=== PATIENT | female | born 1970 | race Caucasian/White ===

== ENCOUNTER → 2020-09-17 12:49 | Outpatient (REF) | payer MEDICAID, SELFPAY ==
--- NOTE | 2020-09-17 13:01 | ECG_ITS ---
Hook-up date: 2020-09-17 13:00:00 Duration: 17:42:00 Test Indications: DIZZINESS Medications: 29053 QRS complexes 96387 Ventricular ectopics which represent 17 % of total QRS comp. 21 Supraventricular ectopics which represent <1 % of total QRS comp. * Paced QRS complexs which represent % of total QRS comp. VENTRICULAR ECTOPY 00778 Isolated 2056 Bigeminal Cycles 366 Couplets 0 Runs 0 Beats in Runs * Beats LONGEST at * BPM at :: -- * Beats FASTEST at * BPM at :: -- SUPRAVENTRICULAR ECTOPY 21 Isolated 0 Couplets 0 Runs 0 Beats in Runs * Beats LONGEST at * BPM at :: -- * Beats FASTEST at * BPM at :: -- HEART RATES 50 MIN at 01:48:41 2020-09-18 70 AVG 127 MAX at 14:45:42 2020-09-17 LONGEST RR 1.2480 secs at 04:27:18 2020-09-18 S-T LEVELS Channel 1 - 128 mm at 13:00:00 2020-09-17 - 128 mm at 13:00:00 2020-09-17 Channel 2 - 128 mm at 13:00:00 2020-09-17 - 128 mm at 13:00:00 2020-09-17 Channel 3 - 128 mm at 03:21:91 -- - 128 mm at 03:21:91 Basic rhythm Normal sinus rhythm No long pause or profound bradycardia Frequent Premature ventricular complexes , 18% of total beats. Patient did not report any symptoms in the diary Referred By: Khoa Almazan Overread By: REX HANNON MD
== END ==
LOC: HO.CARD 12:49
PROVIDERS: PCP Internal Medicine; Visit Provider Internal Medicine
DX: R42 Dizziness and giddiness (principal)
CPT/HCPCS: 93226

== ENCOUNTER → 2020-10-03 14:11 | Outpatient (BNVA) | payer MEDICAID, SELFPAY | PROVIDERS: PCP Internal Medicine; Referring Provider Internal Medicine; Visit Provider Orthopaedic Surgery | DX: Z98.890 Other specified postprocedural states (principal) | CPT/HCPCS: 99212 ==

== ENCOUNTER 2020-10-22 18:30 | Outpatient (REF) | payer MEDICAID, SELFPAY ==
--- NOTE | 2020-10-22 18:33 | MR_ITS ---
EXAMINATION: MR SHOULDER WITHOUT CONTRAST, RIGHT CLINICAL INFORMATION: Right shoulder pain, weakness, numbness. History of rotator cuff surgery fall 2017. COMPARISON: MRI dated 05/20/2017 TECHNIQUE: MRI of the shoulder without contrast was performed on a high-field scanner. FINDINGS: ROTATOR CUFF: Postsurgical changes of a rotator cuff repair are evident at the greater and lesser tuberosities with micrometallic susceptibility artifact, as well as a soft tissue anchor at the superior margin of the bicipital groove, most consistent with a rotator cuff repair and biceps tenodesis. The attenuated appearance of the supraspinatus and subscapularis tendons likely corresponds to the expected postoperative appearance. No discrete recurrent tears are identified in these regions. No appreciable recurrent tendinosis. No muscle atrophy or fatty infiltration. BICEPS: Absence at its intra-articular extent, most consistent with tenodesis. CORACOACROMIAL ARCH: The undersurface of the acromion is blunted and remodeled, consistent with a subacromial decompression. No subacromial spur. Mild to moderate acromioclavicular osteoarthritis appears unchanged. No subacromial subdeltoid bursitis. LABRUM/CAPSULE: Glenoid labrum is blunted superiorly, consistent with prior tenodesis. No labral tears. GLENOHUMERAL JOINT/MARROW: A marginal osteophyte is noted at the glenoid posteroinferiorly. Mild nonuniform chondral thinning at the glenoid articular surface is more notable superiorly. No fracture or malalignment. No joint effusion. MR/MR shoulder RT wo con IMPRESSION: Status post rotator cuff repair at the supraspinatus and infraspinatus tendons without evidence of a recurrent tear. Status post biceps tenodesis. Minimal glenohumeral osteoarthritis. Mild to moderate acromioclavicular osteoarthritis, unchanged.
== END 2020-10-22 18:31 | disposition home or self-care (01) ==
LOC: HO.MRI 18:30
PROVIDERS: Visit Provider Orthopaedic Surgery
DX: Z98.890 Other specified postprocedural states (principal)
CPT/HCPCS: 73221

== ENCOUNTER 2020-10-30 09:53 | Outpatient (REF) | payer MEDICAID, SELFPAY ==
--- NOTE | 2020-10-30 09:56 | MM_ITS ---
EXAMINATION: MM SCREENING DIGITAL BREAST TOMOSYNTHESIS, BILATERAL CLINICAL INFORMATION: Screening. Asymptomatic. The lifetime risk of breast cancer based on the Tyrer-Cuzick Model is 12.2%. COMPARISON: Mammography: July 02, 2018 and studies dating back to January 27, 2013 TECHNIQUE: Digital breast tomosynthesis is performed in both the craniocaudal and mediolateral oblique views along with computer-aided detection (CAD). Synthesized 2D images are generated from the tomosynthesis. FINDINGS: There are scattered areas of fibroglandular density (ACR BI-RADS breast composition Category b). There are no significant masses, abnormal calcifications, or other abnormalities. MM/MM tomosynthesis screening BI IMPRESSION: There are no significant changes from prior study. ASSESSMENT: BI-RADS 1: Negative RECOMMENDATION: Routine annual mammography screening. This patient's information was entered into a reminder system with a target due date for their next mammogram.
== END 2020-10-30 09:54 | disposition home or self-care (01) ==
LOC: HO.MAMMO 09:53
PROVIDERS: Visit Provider Internal Medicine
DX: Z12.31 Encounter for screening mammogram for malignant neoplasm of breast (principal)
CPT/HCPCS: 77063; 77067

== ENCOUNTER → 2020-11-07 09:46 | Outpatient (BNVA) | payer MEDICAID, SELFPAY | PROVIDERS: PCP Pediatrics; Visit Provider Orthopaedic Surgery | DX: Z98.890 Other specified postprocedural states (principal) | CPT/HCPCS: 99212 ==

== ENCOUNTER 2020-11-13 12:55 | Outpatient (RCR) | payer MEDICAID, SELFPAY ==
[2020-11-13 13:08] VITALS: BP 126/60; PULSE 68; RESP 15; O2SAT 99
== END 2021-07-01 13:14 | disposition home or self-care (01) ==
LOC: HO.PT 12:55
PROVIDERS: PCP Internal Medicine; Visit Provider Internal Medicine
DX: H81.10 Benign paroxysmal vertigo, unspecified ear (principal)
CPT/HCPCS: 97112; 97162

== ENCOUNTER 2023-01-28 12:05 | Outpatient (REF) | payer MEDICAID, SELFPAY ==
--- NOTE | ~2023-01-28 | XR_ITS ---
EXAMINATION: XR KNEE, RIGHT CLINICAL INFORMATION: Anterior right knee pain COMPARISON: Radiographs right knee 01/03/2019. TECHNIQUE: Three views of the right knee. FINDINGS: There is spurring at the quadriceps insertion patella and origin patellar tendon and mild spurring at insertion patella tendon. There is no suprapatellar effusion. Hoffa's fat pad appears normal. The deep infrapatellar recess is preserved. Axial view patella shows no lateralization or tilting. No patellofemoral joint narrowing or erosive change. There is mild narrowing medial knee joint compartment. XR/XR knee RT 3V IMPRESSION: -Spurring extensor mechanism enthesis quadriceps and patellar tendons. -No lateralization or tilting patella. -Mild narrowing medial knee joint compartment. No erosive change.
== END 2023-01-28 12:06 | disposition home or self-care (01) ==
LOC: HO.XRAY 12:05
PROVIDERS: Visit Provider Pediatrics
DX: M25.561 Pain in right knee (principal)
CPT/HCPCS: 73562

== ENCOUNTER 2024-07-20 08:36 | Outpatient (REF) | payer OTHER, SELFPAY ==
[2024-07-20 14:22] LABS: MANUAL DIFF FLAG NO
[2024-07-20 14:25] LABS: Basophils Percent Auto 0.3 % (0-2); Eosinophils Absolute Auto 0.1 X10*3/uL (0.0-0.4); Eosinophils Percent Auto 1.4 % (0-4); Hematocrit 36.2 % (37.0-47.0); Hemoglobin 11.3 g/dl (12.0-16.0); Imm Gran Abs Auto 0.02 X10*3/uL (0.00-0.03); Imm Gran Pct Auto 0.3 % (0.0-0.4); Lymphocytes Absolute Auto 1.5 X10*3/uL (1.2-4.9); Mean Corpuscular HGB Conc 31.2 g/dl (31.0-35.0); Mean Corpuscular Hemoglobin 25.1 pg (27.0-33.0); Mean Corpuscular Volume 80.3 fL (80.0-98.0); Mean Platelet Volume 12.2 fL (9.4-12.3); Monocytes Absolute Auto 0.5 X10*3/uL (0.1-1.2); Monocytes Percent Auto 8.9 % (2-11); Neutrophils Absolute Auto 3.7 x10*3/uL (2.0-8.3); Neutrophils Percent Auto 64.1 % (45-73); Platelet Count 259 X10*3/uL (160-400); Red Blood Count 4.51 X10*6/uL (4.20-5.50); Red Cell Distribution Width 16.3 % (11.0-16.0); White Blood Count 5.8 X10*3/uL (4.8-10.8)
[2024-07-20 14:41] LABS: Alanine Aminotransferase 15 U/L (0-31); Alkaline Phosphatase 80 U/L (39-117); Anion Gap 11 (12-20); Aspartate Amino Transferase 17 U/L (5-31); Bilirubin Total 0.4 mg/dL (0.0-1.0); Blood Urea Nitrogen 7 mg/dL (9-16); Calcium 9.1 mg/dL (8.4-10.2); Carbon Dioxide 24 mmol/L (22-29); Chloride 108 mmol/L (96-108); Cholesterol 177 mg/dL (<200); Estimated Glomerular Filt Rate > 60; Glucose Random 72 mg/dL (60-115); HDL Cholesterol 61 mg/dL (>40); LDL Cholesterol Calculated 96 mg/dL (<100); Potassium 3.8 mmol/L (3.3-5.1); Sodium 139 mmol/L (135-145); Total Protein 7.8 g/dL (6.5-8.0); Triglycerides 101 mg/dL (<150)
== END 2024-07-20 08:37 | disposition home or self-care (01) ==
LOC: HO.CHCLDS 08:36
PROVIDERS: Visit Provider Internal Medicine
DX: Z00.00 Encounter for general adult medical examination without abnormal findings (principal); I10 Essential (primary) hypertension; F51.01 Primary insomnia
CPT/HCPCS: 36415; 80053; 80061; 84443; 85025

== ENCOUNTER 2024-07-24 15:49 | Outpatient (REF) | payer OTHER, SELFPAY ==
[2024-07-24 16:50] LABS: Retic HGB Equivalent 28.5 pg (30.0-35.0); Reticulocyte Percent 1.5 % (0.5-1.8); Reticulocytes Absolute 0.065 X10*6/uL (0.026-0.095)
[2024-07-24 17:17] LABS: Iron 28 mcg/dL (30-160); Percent Iron Saturation 7 % (15-50); Total Iron Binding Capacity 391 mcg/dL (228-428); Unsaturated Iron Binding 363 ug/dL
[2024-07-24 17:36] LABS: Ferritin 7 ng/mL (10-250)
== END 2024-07-24 15:50 | disposition home or self-care (01) ==
LOC: HO.LAB 15:49
PROVIDERS: PCP Internal Medicine; Visit Provider Internal Medicine
DX: D50.9 Iron deficiency anemia, unspecified (principal)
CPT/HCPCS: 36415; 82728; 83540; 85045

== ENCOUNTER 2024-12-15 14:41 | Outpatient (REF) | payer OTHER, SELFPAY ==
--- OUTSIDE RECORDS SUMMARY | 2024-12-15 14:59 | XMS_ITS | Encounter Summary ---
Author Organization [employer] Address [address] [facility] [address] [place] [address] Care Team Providers Care Cotton Header Name Role Phone Khoa Almazan MD Primary Care Provider [phone]- [phone] Reason for Visit * Reason Comments Pre-visit Planning Pre visit planning L VM Encounter Details Date Type Department Care Team (Late st Contact Info) Description 12/01/[address] [facility] [address] [place] [address] Khoa Almazan MD [address] [place] [address] Pre-visit Planning (Pre visit planning LVM ) Social History Tobacco Use Types Packs/Day Years Used Date Smoking Tobacco: Never Smokeless Tobacco: Never Depression Answer Date Recorded Patient Health Questionnaire-9 Score 2 11/25/2023 Patient Health Questionnaire-9 Score 2 11/25/2023 Last PHQ-9: Questionnaire Data Not on file 0 11/25/2023 Housing Stability Answer Date Recorded What is your housing situation today? I have tashia shanks 11/17/[address] you li ve. Do you have problems with any of the following? None of the above 11/17/2023 Food Insecurity Answer Date Recorded Within the past 12 months, y ou worried that your food would run out before you got money to buy more: Never True 11/17/2023 Within the past 12 months,th e food you bought just didn't last and you didn't have enough money to get more: Never True Transportation Answer Date Recorded In the past 12 months, has l ack of transportation kept you from medical appts, meetings, work or from getting things needed for daily living? No 11/17/2023 Utilities Answer Date Recorded In the past 12 months, has t he electric, gas, oil or water company threatened to shut off services in your home? No 11/17/2023 Depression Answer Date Recorded Patient Health Questionnaire-2 Score 0 11/25/2023 Comments Unknown Sex and Gender Information Value Date Recorded Sex Assigned at Female 08/24/2022 10:22 AM EDT Legal Sex Female 10:22 AM EDT Gender Identity Female 08/24/2022 10:22 AM EDT Sexual Orientation Straight 08/24/2022 10 :22 AM EDT documented as of this encounter Progress Notes * Winston Mireles - 12/01/2024 1:44 PM EST CC Winston Boswell placed outbound call to patient to complete pre-visit planning. No answer at this time.Patient name and were not confirmed. CC left voicemail requesting return call. Direct contact information provided. documented in this encounter Plan of Treatment Upcoming Encounters Date Type Department Care Team (Late st Contact Info) Description 01/30/2025 2:00 PM EDT Office Visit [facility] [address] [place] [address] Khoa Almazan MD [address] [place] [address] documented as of this encounter Visit Diagnoses Not on filedocumented in this encounter Additional Health Concerns Assessment Noted Time PHQ-9 Depression Total Score: 2 11/25/19 24 1:59 PM EST documented as of this encounter Care Teams Cotton Header Relationship Specialty Start Date End Date Khoa Almazan MD [address] [place] [address] PCP - General Internal Medicine 11/20/11 documented as of this encounter
--- OUTSIDE RECORDS SUMMARY | 2024-12-15 14:59 | XMS_ITS | Encounter Summary ---
Author Organization [employer] Address [address] [facility] [address] [place] [address] Care Team Providers Care Motors Assembler Name Role Phone Khoa Almazan MD Primary Care Provider [phone]- [phone] Reason for Visit * Reason Onset Date Comments Medication Question 10/28/2022 Encounter Details Date Type Department Care Team (Late st Contact Info) Description 10/28/2022 Telephone [facility] [address] [place] [address] Khoa Almazan MD [address] [place] [address] Medication Question Social History Tobacco Use Types Packs/Day Years [...] Orientation Straight 08/24/2022 10 :22 AM EDT COVID-19 Exposure Response Date Recorded In the last 10 days, have yo u been in contact with someone who was confirmed or suspected to have Coronavirus/COVID-19? No / Unsure 01/28/2023 10:41 AM EDT documented as of this encounter Miscellaneous Notes * Telephone Encounter - Josef Wen RN - 10/28/2022 8:58 AM EST Please review message below and advise. Rx prescribed not yet sent to pharmacy. * Telephone Encounter - Winston Mireles - 10/28/2022 8:35 AM EST Tc from pt requesting status update on medications PCP would send, States was seen yesterday at [facility]. Cosmetologist added preferred pharmacy on file. Please contact at [phone] documented in this encounter Plan of Treatment Upcoming Encounters Date Type Department Care Team (Late st Contact Info) Description 01/30/2025 2:00 PM EDT Office Visit [facility] [address] [place], [place] [phone] Khoa Almazan MD [address] [place] [address] documented as of this encounter Visit Diagnoses Diagnosis Acute recurrent frontal sinusitis documented in this encounter Additional Health Concerns Assessment Noted Time PHQ-9 Depression Total Score: 2 10/27/19 23 1:47 PM EST documented as of this encounter Care Teams Motors Assembler Relationship Specialty Start Date End Date Khoa Almazan MD [address] [place] [id number] PCP - General Internal Medicine 11/20/11 documented as of this encounter
--- OUTSIDE RECORDS SUMMARY | 2024-12-15 14:59 | XMS_ITS | Encounter Summary ---
Author Organization [employer] Address [address] [facility] [address] [place] [address] Care Team Providers Care Stitch Separator Name Role Phone Khoa Almazan MD Primary Care Provider [phone] Encounter Details Date Type Department Care Team (Latest Contact Info) Description 12/15/2024 Travel Social History Tobacco Use Types Packs/Day Years Used Date Smoking Tobacco: Never Smokeless Tobacco: Never Alcohol Answer Date Recorded Q1: How often do you have a drink containing alc ohol? 2 12/15/2024 Q2: How many drinks containi ng alcohol do you have on a typical day when you are drinking? 0 12/15/2024 Q3: How often do you have six or more drinks on one occasion? 2 12/15/2024 Depression Answer Date Recorded Patient Health Questionnaire-9 Score 0 12/15/2024 Patient Health Questionnaire-9 Score 0 12/15/2024 Last PHQ-9: Questionnaire Data Not on file 0 12/15/2024 Housing Stability Answer Date Recorded What is [...] Date Recorded Patient Health Questionnaire-2 Score 0 12/15/2024 Comments Unknown Sex and Gender Information Value Date Recorded Sex Assigned at Female 08/24/2022 10:22 AM EDT Legal Sex Female 10:22 AM EDT Gender Identity Female 08/24/2022 10:22 AM EDT Sexual Orientation Straight 08/24/2022 10 :22 AM EDT documented as of this encounter Plan of Treatment Upcoming Encounters Date Type Department Care Team ([facility] st Contact Info) Description 01/30/2025 2:00 PM EDT Office Visit [facility] [address] [place] [address] Khoa Almazan MD [address] [place] [address] documented as of this encounter Visit Diagnoses Not on filedocumented in this encounter Additional Health Concerns Assessment Noted Time PHQ-9 Depression Total Score: 0 12/15/19 25 2:46 PM EST documented as of this encounter Care Teams Stitch Separator Relationship Specialty Start Date End Date Khoa Almazan MD [address] [place] [address] PCP - General Internal Medicine 11/20/11 documented as of this encounter
--- OUTSIDE RECORDS SUMMARY | 2024-12-15 14:59 | XMS_ITS | Clinical Summary ---
Author Organization [employer] Address [address] [facility] [address] [place] [address] Care Team Providers Care Distillery Supervisor Name Role Phone Khoa Almazan MD Primary Care Provider [phone] Allergies Active Allergy Reactions Criticality Noted Date Comments Venlafaxine 07/19/2012 Other reaction(s): facial swelling jaw shivering Medications * This document contains information received from the source organization and may not represent a complete record from that organization. cholecalciferol (Vitamin D-3) 25 MCG (1000 UT) tablet take 1 tablet p.o. once/day 9 Active docusate sodium (Colace) 100 MG capsule Take 1 capsule by mouth at bed time. As needed 2 Active montelukast (Singulair) 10 MG tablet Take 1 tablet by mouth. Every day 9 Active Blood Pressure kit Use daily Active pseudoephedrine (Sudafed) 60 MG tabletIndications :Acute recurrent frontal sinusitis Take 0.5 tablets (30 mg) by mouth every 6 (six) hours if needed for congestion for up to 10 days. 30 tablet 3 Active albuterol 108 (90 Base) MCG/ACT inhalerIndication s:Shortness of breath Inhale 2 puffs every 6 (six) hours if needed for wheezing. 18 g 2 3 Active lidocaine-priloca ine (Emla) 2.5-2.5 % cream Apply bid to affected area prn pain 30 g 3 3 Active Multiple Vitamin (Multivitamin) tablet TAKE 1 TABLET BY MOUTH DAILY 30 tablet 3 3 Active ferrous sulfate 325 (65 Fe) MG tabletIndications :Microcytic anemia Take 1 tablet (325 mg) by mouth with breakfast. Every day 30 tablet 2 4 Active mirtazapine (Remeron) 7.5 MG tabletIndications :Primary insomnia TAKE 1 TABLET(7.5 MG) BY MOUTH AT BEDTIME 30 tablet 4 Active hydroCHLOROthiazi de 12.5 MG tabletIndications :Primary hypertension Take 1 tablet (12.5 mg) by mouth Once per day. 30 tablet 11 5 12/15/19 26 Active Active Problems Problem Noted Date Diagnosed Date Vitamin D deficiency 03/24/2022 COVID-19 03/16/2022 Hypertensive disorder 08/12/2020 Primary insomnia 03/23/2018 Carpal tunnel syndrome 07/13/2014 Encounters Date Type Department Care Team Description 12/15/2024 2:00 PM EST Office Visit [facility] [address] [place] [address] Khoa Almazan MD Microcytic anemia (Primary Dx); Primary hypertension; Annual physical exam 12/15/2024 Travel 12/01/2024 Patient Outreach [facility] [address] [place], [place] [phone] Khoa Almazan MD Pre-visit Planning (Pre visit planning LVM ) 11/03/2024 Telephone [facility] [address] [place] [address] Khoa Almazan MD recall appt from Last 3 Months Immunizations Name Administration Dates Next Due Hep B, adult 09/01/2012,08/03/2012 Influenza injectable quadriv alent IIV4 with preservative 08/26/2018,08/24/2017,08/27/2015 Influenza injectable quadriv alent preservative free 08/15/2021,08/13/2020 Influenza, IIV3, injectable 10/01/2014 Influenza, Split (incl. zelda fied surface antigen) 08/08/2013 Pfizer Covid-19 Vaccine 12+ 12/23/2020, 1 Tdap 06/02/2019 Zoster, Recombinant 08/22/2020,10/27/2019 Family History Medical History Relation Name Comments Alcohol abuse Father Uterine cancer Maternal Grandmother Diabetes Mother Hypertension Mother No Known Problems Paternal Grandfather Relation Name Status Comments Father Maternal Grandmother Mother Paternal Grandfather Social History Tobacco Use Types Packs/Day Years Used Date Smoking Tobacco: Never Smokeless Tobacco: Never Tobacco Cessation:Counseling Given: No Alcohol Answer Date Recorded Q1: How often [...] Orientation Straight 08/24/2022 10 :22 AM EDT Last Filed Vital Signs Vital Sign Reading Time Taken Comments Blood Pressure 160/90 12/15/2024 2:05 PM EST Pulse 70 12/15/2024 2:05 PM EST Temperature 36.8 ??C (98.3 ??F) 12/15/2024 2:05 PM ES T Respiratory Rate 20 12/15/2024 2:05 PM EST Oxygen Saturation 99% 12/15/2024 2:05 PM EST Inhaled Oxygen Concentration - - Weight 73.5 kg (162 lb) 12/15/2024 2:05 PM EST Height 156 cm (5' 1.42 ) 12/15/2024 2:05 PM EST Body Mass Index 30.2 12/15/2024 2:05 PM EST Plan of Treatment Upcoming Encounters Date Type Department Care Team ([facility] st Contact Info) Description 01/30/2025 2:00 PM EDT Office Visit [facility] [address] [place] [address] Khoa Almazan MD [address] [place], [place] [phone] Health Maintenance Due Date Last Done Comments CT Colonography 1968 FIT DNA/Cologuard 1968 FIT 1968 FOBT 1968 HIV Screening 1968 Sigmoidoscopy 1968 Hepatitis C Screening 1986 Pap Smear 1989 Cervical Cancer Screening 1998 HPV/Cotest 1998 Hepatitis B Vaccines (3 of 3 - 19+ 3-dose series) 02/01/2013 09/01/2012, 08/03/2012 Pneumococcal Vaccine: 50+ Years (2 of 2 - PCV) 2018 10/18/2007 Mammogram 10/30/2022 10/30/2020, 07/04/2018 COVID-19 Vaccine ( season) 2024 07/29/2021, 12/23/2020, 12/02/2020 Influenza Vaccine (#1) 2024 2, 08/15/2021, 08/13/2020, Additional history exists SDOH Screening 11/17/2024 11/17/2023 Depression Screening 11/25/2024 11/25/2023, 11/25/19 Alcohol/Substance Use Screening 12/15/2025 12/15/2024 Tobacco Screening 12/15/2025 12/15/2024 DTaP/Tdap/Td Vaccines (2 - Td or Tdap) 06/02/2029 06/02/2019 Colonoscopy 07/13/2029 07/13/2019 Colorectal Cancer Screening 07/13/2029 Lipid Panel 07/20/2029 07/20/2024, 08/12/2022 RSV Patients and Patients Aged 60 years or older (1 - 1-dose 75+ series) 2043 Zoster Vaccines Completed 08/22/2020, 10/27/2019 HIB Vaccines Aged Out No longer eligi ble based on patient's age to complete this topic HPV Vaccines Aged Out No longer eligi ble based on patient's age to complete this topic Hepatitis A Vaccines Aged Out No long er eligible based on patient's age to complete this topic IPV Vaccines Aged Out No longer eligi ble based on patient's age to complete this topic Meningococcal Vaccine Aged Out No natividad maria dolores eligible based on patient's age to complete this topic RSV under 20 months Aged Out No longe r eligible based on patient's age to complete this topic Rotavirus Vaccines Aged Out No longer eligible based on patient's age to complete this topic Procedures Procedure Name Priority Date/Time Associated Diagnosis Comments LIPID PANEL, STANDARD Routine 07/20/2024 8:41 AM EDT Annual physical exam Primary hypertension Primary insomnia MAMMOGRAM GENERIC Routine 10/30/2020 9:5 6 AM EST HM COLONOSCOPY Routine 07/13/2019 from Last 3 Months or Most Recently Relevant to Health Maintenance Results * Lipid Panel, Standard (07/20/2024 8:41 AM EDT) Triglycerides 101 <150 mg/dL [facility] Comment:Desirable Triglyceri de: less than 150 mg/dLBorderline High Triglyceride 150-199 mg/dLHigh Triglyceride: 200-499 mg/dLVery High Triglyceride: greater than or equal to 5OO mg/dL Cholesterol 177 <200 mg/dL [facility] Comment:Desirable Cholestero l: less than 200 mg/dLBorderline High Cholesterol: 200-239 mg/dLHigh Cholesterol: greater than 239 mg/dL LDL Cholesterol Calculated 96 <100 mg/dL [facility] Comment:Desirable LDL: less than 100 mg/dLNear Optimal/Above Optimal LDL: 110- 129 mg/dLBorderline High LDL: 130-159 mg/dLHigh LDL: 160-189 mg/dLVery High LDL: greater than or equal to 190 mg/dL HDL Cholesterol 61 >40 mg/dL [facility] Comment:Desirable HDL: great er than 40 mg/dL Note: This HDL assay may give artificially low results in patients with liver disease. Blood Venous blood specimen / Unknown 07/20/2024 8:41 AM EDT 07/20/2024 2:13 PM EDT Khoa Almazan MD LAB BLOOD ORDERABLES Final Result Performing Organization Address City/State/[facility] Co de Phone Number [facility] [address] [place] [phone] * Mammography Report 1 (10/30/2020 9:56 AM EST) Anatomical Region Laterality Modality Breast Bilateral Mammography 10/30/2020 9:56 AM EST Narrative 10/31/2020 11:21 AM EST Refer to the Notes tab for result details [facility] Procedure: Mammography Report 1 Procedure Note Provider, MD Missy - 01/16/2023 Refer to the Notes tab for result details [facility] Procedure: Mammography Report 1 Khoa Almazan MD IMG BI PROCEDURES Final Res ult * Hm Colonoscopy (07/13/2019) Colonoscopy Normal Normal Narrative Kaye Mckenzie - 07/13/2019 Recommended 10 year follow up Historical Provider HEALTH MAINTENANCE Final Result from Last 3 Months or Most Recently Relevant to Health Maintenance Insurance Care Teams Distillery Supervisor Relationship Specialty Start Date End Date Khoa Almazan MD [address] [place] [id number] PCP - General Internal Medicine 11/20/11
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
--- OUTSIDE RECORDS SUMMARY | 2024-12-15 14:59 | XMS_ITS | Encounter Summary ---
Author Organization [employer] Address [address] [facility] 7[address] [place] [address] Care Team Providers Care Truck Driver Name Role Phone Khoa Almazan MD Primary Care Provider [phone]- [phone] Encounter Details Date Type Department Care Team ([facility] st Contact Info) Description 07/20/2024 Orders Only [facility] CHC MED & PEDS [address] [place], [place] [phone] Khoa Almazan MD [address] [place] [address] Microcytic anemia (Primary Dx) Social History Tobacco Use Types Packs/Day Years [...] Description 01/30/2025 2:00 PM EDT Office Visit [facility] CH[facility] MED & PEDS [address] [place] [address] Khoa Almazan MD [address] [place], [place] [phone] documented as of this encounter Procedures Procedure Name Priority Date/Time Associated Diagnosis Comments IRON AND TOTAL IRON BINDING CAPACITY Routine 07/24/2024 3:57 PM EDT Microcytic anemia RETICULOCYTE COUNT Routine 07/24/2024 3: 57 PM EDT Microcytic anemia FERRITIN Routine 07/24/2024 3:57 PM EDT Microcytic anemia documented in this encounter Results * (ABNORMAL) Reticulocyte Count (07/24/2024 3:57 PM EDT) Reticulocytes Absolute 0.065 0.026 - 0.095 X10*6/uL [facility] Immature Retic Fraction 22.0(H) 3.0 - 15.9 % [facility] Retic HGB Equivalent 28.5(L) 30.0 - 35.0 pg [facility] Reticulocyte Percent 1.5 0.5 - 1.8 % [facility] Blood Venous blood specimen / Unknown 07/24/2024 3:57 PM EDT 07/24/2024 3:57 PM EDT us Khoa Almazan MD LAB BLOOD ORDERABLES Final Result Performing Organization Address [facility] Co de Phone Number [facility] [address] [place] [phone] * (ABNORMAL) Ferritin (07/24/2024 3:57 PM EDT) Ferritin 7(L) 10 - 250 ng/mL [facility] Blood Venous blood specimen / Unknown 07/24/2024 3:57 PM EDT 07/24/2024 3:57 PM EDT us Khoa Almazan MD LAB BLOOD ORDERABLES Final Result Performing Organization Address [facility] Phone Number [facility] [address] [place] [phone] * (ABNORMAL) Iron And Total Iron Binding Capacity (07/24/2024 3:57 PM EDT) Iron 28(L) 30 - 160 mcg/dL [facility] Total Iron Binding Capacity 391 228 - 428 mcg/dL [facility] Percent Iron Saturation 7(L) 15 - 50 % [facility] Unsaturated Iron Binding 363 ug/dL [facility] Blood Venous blood specimen / Unknown 07/24/2024 3:57 PM EDT 07/24/2024 3:57 PM EDT us Khoa Almazan MD LAB BLOOD ORDERABLES Final Result Performing Organization Address [facility] Co de Phone Number [facility] [address] [place] [phone] documented in this encounter Visit Diagnoses Diagnosis Microcytic anemia- Primary Unspecified iron deficiency anemia documented in this encounter Additional Health Concerns Assessment Noted Time PHQ-9 Depression Total Score: 2 11/25/19 24 1:59 PM EST documented as of this encounter Care Teams Truck Driver Relationship Specialty Start Date End Date Khoa Almazan MD [address] [place] [phone] PCP - General Internal Medicine 11/20/11 documented as of this encounter
--- OUTSIDE RECORDS SUMMARY | 2024-12-15 14:59 | XMS_ITS | Encounter Summary ---
Author Organization [employer] Address [address] [facility] 7 [place] [address] Care Team Providers Care Floral Specialist Name Role Phone Khoa Almazan MD Primary Care Provider [phone]- [phone] Reason for Visit * Reason Onset Date Comments Nurse Triage 05/19/2023 Encounter Details Date Type Department Care Team ([facility] st Contact Info) Description 05/19/2023 Telephone [facility] CH[facility] MED & PEDS [address] [place] [address] Khoa Almazan MD [address] [place] [address] Nurse Triage Social History Tobacco Use Types Packs/Day Years Used Date Smoking Tobacco: Never Smokeless Tobacco: Never Depression Answer Date Recorded Patient Health Questionnaire-9 Score 2 10/27/2022 Depression Answer Date Recorded Patient Health Questionnaire-2 Score 0 10/27/2022 Comments Unknown Sex and Gender Information Value Date Recorded Sex Assigned at Female 08/24/2022 10:22 AM EDT Legal Sex Female 10:22 AM EDT Gender Identity Female 08/24/2022 10:22 AM EDT Sexual Orientation Straight 08/24/2022 10 :22 AM EDT documented as of this encounter Miscellaneous Notes * Telephone Encounter - Kenzie Dominguez RN - 05/19/2023 10:56 AM EDT Triage call Pt reports left arm with numbness/tingling from elbow to hand. Pt reports this comes and goes and has been a chronic sensation. Pt is able to use arm/hand without weakness noted. Pt denies neck, back pain. Pt does do some typing but not alot . Apt in [facility] 340pm 05/19/23. Protocol Used: Neurologic Deficit (Adult) Protocol-Based Disposition: See in Office or Video Visit within 3 Days Positive Triage Question: * Numbness or tingling in one or both hands is a chronic symptom (recurrent or ongoing problem lasting > 4 weeks) * All higher-acuity triage questions were negative Care Advice Discussed: * Reassurance and Education - Tingling in Foot * Reassurance and Education - Tingling in Hand * Reasons To Call Back - Symptoms do not go away within 10 to 15 minutes - You become worse * Telephone Encounter - Ester Wen - 05/19/2023 10:34 AM EDT Symptom: Numbness (from elbow to hand) Outcome: Schedule an urgent appointment (within 1 hour) or talk to a nurse or provider soon Reason: Getting worse The caller accepted this outcome Please contact pt at [phone] (Telugu) documented in this encounter Plan of Treatment Upcoming Encounters Date Type Department Care Team (Late st Contact Info) Description 01/30/2025 2:00 PM EDT Office Visit [facility] CH[facility] MED & PEDS [address] [place] [address] Khoa Almazan MD [address] [place] [address] documented as of this encounter Visit Diagnoses Not on filedocumented in this encounter Additional Health Concerns Assessment Noted Time PHQ-9 Depression Total Score: 2 10/27/19 23 1:47 PM EST documented as of this encounter Care Teams Floral Specialist Relationship Specialty Start Date End Date Khoa Almazan MD [address] [place] [address] PCP - General Internal Medicine 11/20/11 documented as of this encounter
--- OUTSIDE RECORDS SUMMARY | 2024-12-15 14:59 | XMS_ITS | Encounter Summary ---
Author Organization [employer] [facility] Address [address] [facility] 7[address] [place] [address] Care Team Providers Care Instrument Fitter Name Role Phone Khoa Almazan MD Primary Care Provider Encounter Details Date Type Department Care Team (Late Contact Info) Description 08/26/2023 Abstract [facility]IC[facility] [address] [place] [address] Khoa Almazan MD [address] [place] [address] Social History Tobacco Use Types Packs/Day Years [...] Description 01/30/2025 2:00 PM EDT Office Visit [facility] MED & PEDS [address] [place] [address] Khoa Almazan MD [address] [place] [address] documented as of this encounter Procedures Procedure Name Priority Date/Time Associated Diagnosis Comments HM COLONOSCOPY Routine 07/13/2019 documented in this encounter Results * Hm Colonoscopy (07/13/2019) Colonoscopy Normal Normal Narrative Kaye Mckenzie - 07/13/2019 Recommended 10 year follow up us Historical Provider MD HEALTH MAINTENANCE Final Result documented in this encounter Visit Diagnoses Not on filedocumented in this encounter Additional Health Concerns Assessment Noted Time PHQ-9 Depression Total Score: 2 10/27/19 23 1:47 PM EST documented as of this encounter Care Teams Instrument Fitter Relationship Specialty Start Date End Date Khoa Almazan MD [address] [place] [phone] PCP - General Internal Medicine 11/20/11 documented as of this encounter
--- OUTSIDE RECORDS SUMMARY | 2024-12-15 14:59 | XMS_ITS | Encounter Summary ---
Author Organization [employer] Address [address] [facility] [address] [place] [address] Care Team Providers Care Lens Edge Grinder Machine Name Role Phone Khoa Almazan MD Primary Care Provider [phone]- [phone] Reason for Visit * Reason Onset Date Comments Triage 03/15/2023 Encounter Details Date Type Department Care Team (Late st Contact Info) Description 03/15/2023 Telephone [facility] MEDICINE [address] [place] [address] Khoa Almazan MD [address] [place] [address] Triage Social History Tobacco Use Types Packs/Day [...] Telephone Encounter - Kenzie Dominguez RN - 03/15/2023 4:54 PM EDT Triage call Pt reports dizziness since yesterday. Pt reports feeling of slight spinning and at times like vision will go black when standing up or moving fast from sitting/bent over position. Pt is trying to increase liquid intake. 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 Apt in [facility] @ 1100am 03/16. Insurance is verified as active prior to booking. Protocol Used: Dizziness (Adult) Protocol-Based Disposition: See in Office or Video Visit within 3 Days Positive Triage Question: * Mild dizziness (e.g., walking normally) and has NOT been evaluated by physician for this (Exception: dizziness caused by heat exposure, sudden standing, or poor fluid intake) * All higher-acuity triage questions were negative Care Advice Discussed: * Reassurance and Education - Dizziness From Not Drinking Enough Liquids * Drink Fluids * Lie Down and Rest * Cool Off * Prevention * Reasons To Call Back - After 2 hours of rest and fluids And still feeling dizzy. - Passes out (faints). - You become worse. * Telephone Encounter - Ike Nelson - 03/15/2023 4:17 PM EDT Tc from pt returning triage nurse call. * Telephone Encounter - Winston Mireles - 03/15/2023 3:24 PM EDT Symptom: Dizziness Outcome: Schedule an urgent appointment (within 4 hours) or talk to a nurse or provider soon Reason: Getting worse The caller accepted this outcome Please contact at [phone] documented in this encounter Plan of Treatment Upcoming Encounters Date Type Department Care Team (Late st Contact Info) Description 01/30/2025 2:00 PM EDT Office Visit [facility] MED & PEDS [address] [place] [address] Khoa Almazan MD [address] [place] [address] documented as of this encounter Visit Diagnoses Not on filedocumented in this encounter Additional Health Concerns Assessment Noted Time PHQ-9 Depression Total Score: 2 10/27/19 23 1:47 PM EST documented as of this encounter Care Teams Lens Edge Grinder Machine Relationship Specialty Start Date End Date Khoa Almazan MD [address] [place] [address] PCP - General Internal Medicine 11/20/11 documented as of this encounter
--- OUTSIDE RECORDS SUMMARY | 2024-12-15 14:59 | XMS_ITS | Encounter Summary ---
Author Organization [email or web address] Address [address] [facility] [address] [place] [address] Care Team Providers Care Registered Associate Name Role Phone Khoa Almazan MD Primary Care Provider [phone]- [phone] Encounter Details Date Type Department Care Team ([facility] st Contact Info) Description 11/01/2023 Telephone [facility] MED & PEDS [address] [place], [place] [phone] Khoa Almazan MD [address] [place] [address] Social History Tobacco Use Types Packs/Day Years [...] encounter Miscellaneous Notes * Telephone Encounter - Roderick Leung - 11/01/2023 3:19 PM EST Tc from pt returned call regarding office visit 10/28/23. Pt was called after the visit to make her aware of the results of the CBC. No answer. Message leftto call back to inform her that Iron supplement will be sent and she will need a repeat CBC in 1 month at her next visit with me at [facility]. Learning Support Services Director relayed information. documented in this encounter Plan of Treatment Upcoming Encounters Date Type Department Care Team (Late st Contact Info) Description 01/30/2025 2:00 PM EDT Office Visit [facility] MED & PEDS [address] [place] [address] Khoa Almazan MD [address] [place] [address] documented as of this encounter Visit Diagnoses Not on filedocumented in this encounter Additional Health Concerns Assessment Noted Time PHQ-9 Depression Total Score: 2 10/27/19 23 1:47 PM EST documented as of this encounter Care Teams Registered Associate Relationship Specialty Start Date End Date Khoa Almazan MD [address] [place] [address] PCP - General Internal Medicine 11/20/11 documented as of this encounter
[2024-12-15 17:34] LABS: MANUAL DIFF FLAG NO
[2024-12-15 17:39] LABS: Basophils Percent Auto 0.4 % (0-2); Eosinophils Absolute Auto 0.1 X10*3/uL (0.0-0.4); Eosinophils Percent Auto 1.4 % (0-4); Hematocrit 34.3 % (37.0-47.0); Hemoglobin 10.9 g/dl (12.0-16.0); Imm Gran Abs Auto 0.01 X10*3/uL (0.00-0.03); Imm Gran Pct Auto 0.1 % (0.0-0.4); Lymphocytes Absolute Auto 1.9 X10*3/uL (1.2-4.9); Lymphocytes Percent Auto 27.6 % (20-40); Mean Corpuscular HGB Conc 31.8 g/dl (31.0-35.0); Mean Corpuscular Hemoglobin 26.5 pg (27.0-33.0); Mean Corpuscular Volume 83.5 fL (80.0-98.0); Mean Platelet Volume 12.3 fL (9.4-12.3); Monocytes Absolute Auto 0.7 X10*3/uL (0.1-1.2); Monocytes Percent Auto 9.7 % (2-11); Neutrophils Absolute Auto 4.3 x10*3/uL (2.0-8.3); Neutrophils Percent Auto 60.8 % (45-73); Platelet Count 216 X10*3/uL (160-400); Red Blood Count 4.11 X10*6/uL (4.20-5.50)
[2024-12-16 08:15] LABS: HIV AB/AG Nonreactive (Nonreactive); HIV Num 1 0.06 S/CO (0.00-0.99); ~HepC Num1 0.15 S/CO (0.00-0.79); ~Hepatitis C Antibody Nonreactive (Nonreactive)
== END 2024-12-15 14:42 | disposition home or self-care (01) ==
LOC: HO.CHCLDS 14:41
PROVIDERS: Visit Provider Internal Medicine
DX: D50.9 Iron deficiency anemia, unspecified (principal)
CPT/HCPCS: 36415; 85025; 86803; 87389